=== PATIENT | male | born 1990 | race Caucasian/White ===

== ENCOUNTER 2018-04-26 16:19 | Emergency (ER) | payer OTHER ==
[~2018-04-26] VITALS: Ht 185.4 cm; Wt 99.8 kg
[2018-04-26] MEDS ORDERED: ZOFRAN4 MG PO (18:55)
== END 2018-04-26 19:08 | disposition home or self-care (01) ==
LOC: ED 16:19
DX: J10.1 Influenza due to other identified influenza virus with other respiratory manifestations (principal); R19.7 Diarrhea, unspecified; R53.81 Other malaise; Z91.040 Latex allergy status

== ENCOUNTER 2021-04-03 05:48 | Emergency (ER) | payer OTHER ==
[~2021-04-03] VITALS: Ht 187.9 cm; Wt 117.9 kg
[~2021-04-03 05:48] MED LIST: ZOFRAN4 MG PO
[2021-04-03] MEDS ORDERED: SEPTDS PO (06:18)
[2021-04-03] MEDS ORDERED: IBU800 M2 PO (06:18)
== END 2021-04-03 07:43 | disposition home or self-care (01) ==
LOC: ED 05:48
DX: S80.11XA Contusion of right lower leg, initial encounter (principal); Z91.040 Latex allergy status; W22.03XA Walked into furniture, initial encounter; Y93.89 Activity, other specified; Y92.89 Other specified places as the place of occurrence of the external cause; Y99.8 Other external cause status

== ENCOUNTER 2022-12-04 09:32 | Emergency (ER) | payer OTHER ==
[~2022-12-04] VITALS: Wt 120.2 kg
[~2022-12-04 09:32] MED LIST changes: +IBU800 M2 PO; +SEPTDS PO
[2022-12-04 11:35] LABS: BASO # 0.1 10*3/uL (0.0-0.1); BASO % 0.7 % (0.0-1.0); EOS # 0.2 10*3/uL (0.0-0.4); EOS % 2.2 % (1.0-4.0); HEMATOCRIT 54.5 % (42.0-52.0); LYMPH # 1.8 10*3/uL (1.3-4.4); LYMPH % 21.2 % (27.0-41.0); MEAN CORPUSCULAR HGB 29.5 pg (27.0-31.0); MEAN CORPUSCULAR HGB CONC 31.7 g/dl (33.0-37.0); MEAN PLATELET VOLUME 10.1 fl (9.6-12.3); MONO # 1.1 10*3/uL (0.1-1.0); MONO % 13.1 % (3.0-9.0); NEUT # 5.3 10*3/uL (2.3-7.9); NEUT % 62.2 % (47.0-73.0); PLATELET COUNT AUTOMATED 569 10*3/uL (130-400); RED BLOOD COUNT 5.86 10*6/uL (4.50-5.90); WHITE BLOOD COUNT 8.5 10*3/uL (4.8-10.8)
[2022-12-04 11:56] LABS: ALKALINE PHOSPHATASE 59 U/L (46-116); CHLORIDE 104 mmol/L (98-107); LIPASE 29 U/L (12-53); POTASSIUM 4.1 mmol/L (3.4-5.1); SGPT/ALT 15 U/L (5-49); TOTAL PROTEIN 7.3 gm/dL (6.0-8.0)
[2022-12-04 11:59] LABS: BUN < 5 mg/dl (9-23)
[2022-12-04] MEDS ORDERED: ONDANSETRON4 MG SL (13:49)
== END 2022-12-04 14:00 | disposition home or self-care (01) ==
LOC: ED 09:32
PROVIDERS: Emergency Medicine
DX: B34.9 Viral infection, unspecified (principal); R11.2 Nausea with vomiting, unspecified; Z98.890 Other specified postprocedural states; Z20.822 Contact with and (suspected) exposure to COVID-19

== ENCOUNTER 2023-05-31 01:43 | Emergency (ER) | payer OTHER ==
[~2023-05-31] VITALS: Ht 187.9 cm; Wt 120.2 kg
[~2023-05-31 01:43] MED LIST changes: +ONDANSETRON4 MG SL
[2023-05-31] MEDS ORDERED: ZITHROMAX250 MG PO (03:35)
[2023-05-31] MEDS ORDERED: methylPREDNISolone sod succ 125 MG VIAL IM ONE (03:35)
[2023-05-31] MEDS ORDERED: PREDNISONE20 M1 PO (03:35)
== END 2023-05-31 03:55 | disposition home or self-care (01) ==
LOC: ED 01:43
DX: B34.9 Viral infection, unspecified (principal); Z20.822 Contact with and (suspected) exposure to COVID-19; R19.7 Diarrhea, unspecified; Z98.890 Other specified postprocedural states